=== PATIENT | male | born 1960 | race Caucasian/White ===

== ENCOUNTER 2017-11-11 09:20 | Emergency (ER) | payer OTHER ==
[2017-11-11] MEDS: KETOROLAC 60 MG/2 ML INJ. IM (09:48)
[2017-11-11] MEDS: HYDROcodone/APAP 5/325MG 1 TAB TABLET PO (09:48)
[2017-11-11] MEDS: LIDOCAINE (700MG/PATCH) PATCH. TP (09:48)
== END 2017-11-11 10:10 | disposition home or self-care (01) ==
LOC: ER 09:20
DX: M54.42 Lumbago with sciatica, left side (principal); K21.9 Gastro-esophageal reflux disease without esophagitis; Z90.49 Acquired absence of other specified parts of digestive tract; Z88.0 Allergy status to penicillin
CPT/HCPCS: 96372; 99283-25; J1885